=== PATIENT | male | born 1955 ===

== ENCOUNTER 2023-01-21 08:18 | Outpatient (CLI) | payer OTHER | END 2023-01-21 08:32 | disposition home or self-care (01) | LOC: MRI 08:18 | DX: J01.10 Acute frontal sinusitis, unspecified (principal); H46.11 Retrobulbar neuritis, right eye | CPT/HCPCS: 70543; 70553; Q9965; 70542 ==

== ENCOUNTER → 2023-01-21 08:48 | Outpatient (CLI) | payer OTHER | END | disposition home or self-care (01) | LOC: LAB 08:48 | PROVIDERS: ATTEND Radiology Diagnostic Radiology | DX: R10.30 Lower abdominal pain, unspecified (principal) ==

== ENCOUNTER 2024-10-18 16:07 | Outpatient (CLI) | payer OTHER | END 2024-10-18 16:10 | disposition home or self-care (01) | LOC: SONOGRAMA 16:07 | DX: L02.412 Cutaneous abscess of left axilla (principal); R22.9 Localized swelling, mass and lump, unspecified ==

== ENCOUNTER → 2025-05-14 | Outpatient (CLI) | payer OTHER | END | disposition home or self-care (01) | LOC: MRI 10:20 | PROVIDERS: ATTEND Physical Medicine & Rehabilitation | DX: M54.31 Sciatica, right side (principal); M62.830 Muscle spasm of back | CPT/HCPCS: 72148 ==